=== PATIENT | female | born 1945 | race Caucasian/White ===

== ENCOUNTER 2021-12-24 13:39 | Outpatient (CLI) | payer OTHER, SELFPAY ==
[2021-12-24 21:59] LABS: Chloride* 101 mmol/L (96-114); Potassium* 4.9 mmol/L (3.6-5.1); Sodium* 134 mmol/L (135-149)
[2021-12-24 22:01] LABS: Cholesterol* 189 mg/dL (90-199)
[2021-12-24 22:02] LABS: Blood Urea Nitrogen* 26 mg/dL (7-30); Carbon Dioxide* 27 mmol/L (20-32); Estimated Glomerular Filt Rate 58 ml/min; Glucose* 99 mg/dL (60-115); Triglycerides* 77 mg/dL (40-149)
[2021-12-24 22:03] LABS: Calcium* 9.4 mg/dL (8.4-10.6); HDL Cholesterol* 61 mg/dL (>=50); LDL Cholesterol Calculated 113 mg/dL (<100)
== END 2021-12-24 13:40 | disposition home or self-care (01) ==
PROVIDERS: PCP Emergency Medicine; Visit Provider Emergency Medicine
DX: I10 Essential (primary) hypertension (principal); Z13.6 Encounter for screening for cardiovascular disorders
CPT/HCPCS: 80048; 80061

== ENCOUNTER 2022-03-09 10:30 | Outpatient (RCR) | payer OTHER, SELFPAY ==
--- NOTE | 2022-02-09 15:50 | PT.OPDN ---
[facility] PT [facility] Daily Note Start: 02/09/22 12:04 Freq: Status: Active Protocol: Document 02/09/22 12:04 CJT (Rec: 02/09/22 14:42 CJT [id number]) E-signed By Alfonzo Gomez, PT PT [facility] Daily Progress Note Visit Information Note Type Daily Note Visit Number 1 Insurance Authorized Visits tbd Physician Authorized Visits eval and treat Insurance Information Recert Due Date 04/10/22 Insurance Name [employer] Diagnosis M54.5 - low back pain Treating Diagnosis M54.5 - low back pain Referring Alexia Curtis PA-C Subjective Subjective Pt presents with complaints of low back pain. Pt was making her bed back in December 2021 and felt a twinge. The next day the pain was much worse and she wasn't able to move. Pts pain has since fluctuated nearly daily. Pain was made worse with bending forward but she is able to bend forward now. Pain has been gradually getting better. Still having some pain in R lumbar region at iliac crest/PSIS region. Pt wants to be able to walk at least a half a block. Pt feels she is not able to walk further due to LE weakness. : [place] Home Exercise Home Exercise Comments [id number] Objective Other/Pertinent Objective Lumbar ROM Extension - 7 degrees Flexion - no restrictions R/L Side Bend - 15/12 R/L Rotation - moderate restrictions B R Hip ROM Flexion - 110 IR/ER - 25/15 L Hip ROM Flexion - 120 IR/ER - 30/25 R knee ROM - WNL L knee ROM - WNL Strength R Hip Strength Flexion - 3 Abduction - 4 Adduction - 4 IR - 5 ER - 5 Extension - DNT L Hip Strength Flexion - 4 Abduction - 4 Adduction - 5 IR - 5 ER - 5 Extension - DNT R knee Extension - 5 R Knee Flexion - 4+ L knee Extension - 5 L knee Flexion - 5 R ankle DF - 4 L ankle DF - 5 Spurling's compression, SLR< slump each negative bilaterally Pelvis: level LLD Right - 89.5cm Left - 90.5cm Patient Instructed in Risks/Benefits Yes Therapeutic Exercise Therapeutic Exercise Minutes (minutes) 15 Therapeutic Exercise: To Restore Supine trunk rotations x 20 Functional Status SKTC stretch x 60 ea DKTC stretch x 60 PPT 2 x 10 reps, 5 hold Treatment Minutes Untimed Code Treatment Minutes 45 Timed Code Treatment Minutes 15 Total Treatment Time 60 Billing Units Therapeutic Exercise Units 1 Assessment/Impression Assessment/Impression Adriana is a 76 year old female who presents to OP PT clinic with complaints of LBP. Pt has chronic LBP but notes that her pain now is different . Began when she was making her bed in December. Pain has fluctuated since but remains relatively unchanged. Is able to bend forward now but occasionally still has sharp pains around her R PSIS region . Testing reveals deficits in strength and ROM of lumbar spine and B LEs. Pt shows fair ability to perform pelvic tilt indicating ability to contract deep pelvic stabilizers. Pts pain appears to be due to a myofascial strain from when she was lifting the corner of her bed when changing sheets. Skilled PT services are medically necessary to address deficits and return patient to highest level of function. Recommend physical therapy sessions 2/ week for 8 weeks. Pt agrees with this plan. Printout of HEP was given for I completion and pt gives verbal understanding of each exercise . Plan of Care Physical Therapy Goals STG - To be completed in 2-3 weeks: 1. Pt will report reduction in back pain by factor of 2 so that they may perform all ADLs with tolerable level of pain. 2. Pt will demonstrate ability to perform pelvic tilt with good coordination as indication of appropriate firing of pelvic and lumbar stabilizing muscles to provide greater support for pelvis and lumbar spine. 3. Pt will demonstrate improved lumbar extension by 10 degrees so that they may reach for cans of soup on top shelf in pantry. 4. Pt will demonstrate 5/5 MMT for all LE motions without reproduction of pain to provide greater support to pelvis and lumbar spine. 5. Pt will report ability to tolerate 30+ minutes of standing so that they may cook meals for family gatherings.. LTG - To be completed in 8-12 weeks: 1. Pt to be I with HEP so that they may I manage progression of symptoms. 2. Pt will report ability to sleep through the night without waking due to pain so that they may wake well rested with reduced mental fatigue during working hours. 3. Pt will demonstrate 5/5 MMT for both upper and lower abdominals to provide greater support to pelvis and lumbar spine. 4. Pt will demo ability to walk 1000 ft without stopping to rest so that she may walk with her for exercise/ pleasure. Daily Plan of Care Continue per POC
== END 2022-05-19 11:45 | disposition home or self-care (01) ==
PROVIDERS: PCP Emergency Medicine; Visit Provider Emergency Medicine
DX: M54.50 Low back pain, unspecified (principal); Z51.89 Encounter for other specified aftercare
CPT/HCPCS: 97110; 97140; 97161

== ENCOUNTER 2022-12-22 08:56 | Outpatient (CLI) | payer OTHER, SELFPAY | END 2022-12-22 08:57 | disposition home or self-care (01) | LOC: NFLDREF 12-23 05:53 | PROVIDERS: PCP Emergency Medicine; Referring Provider Emergency Medicine; Visit Provider Emergency Medicine | DX: Z00.00 Encounter for general adult medical examination without abnormal findings (principal); R73.01 Impaired fasting glucose; I10 Essential (primary) hypertension; Z13.6 Encounter for screening for cardiovascular disorders | CPT/HCPCS: 80048; 80061 ==

== ENCOUNTER 2022-12-24 08:58 | Outpatient (CLI) | payer OTHER, SELFPAY | END 2022-12-24 08:59 | disposition home or self-care (01) | LOC: NFLDREF 12-25 08:17 | PROVIDERS: PCP Emergency Medicine; Referring Provider Emergency Medicine; Visit Provider Emergency Medicine | DX: Z00.00 Encounter for general adult medical examination without abnormal findings (principal); N95.2 Postmenopausal atrophic vaginitis | CPT/HCPCS: 84443 ==

== ENCOUNTER 2023-04-01 10:25 | Outpatient (CLI) | payer OTHER, SELFPAY ==
[2023-04-01 10:37] LABS: Appearance Urine Cloudy (Clear); Bilirubin Urine Negative (Negative); Blood Urine 1+ (Negative); Color Urine Yellow (Yellow); Glucose Urine Negative (Negative); Ketones Urine Negative (Negative); Leukocyte Esterase Urine 2+ (Negative); Nitrite Urine Positive (Negative); Protein Urine Negative (Negative); Urobilinogen Urine 0.2 (0.2-1.0); pH Urine 5.5 (5.0-8.5)
[2023-04-01 10:44] LABS: Squamous Epithelial Cell Urine Few (None-Few); WBC Clumps Urine Many; WBC Urine 50-100 (0-5)
[2023-04-01 10:45] LABS: Bacteria Urine Many
== END 2023-04-01 10:26 | disposition home or self-care (01) ==
LOC: LKVREF 10:26
PROVIDERS: PCP Emergency Medicine; Visit Provider Emergency Medicine
DX: N39.0 Urinary tract infection, site not specified (principal)
CPT/HCPCS: 81001; 87086; 87186

== ENCOUNTER 2023-05-10 22:27 | Outpatient (REF) | payer OTHER, SELFPAY ==
[2023-05-10 23:47] LABS: Appearance Urine Clear (Clear); Bilirubin Urine Negative (Negative); Blood Urine Trace-intact (Negative); Color Urine Yellow (Yellow); Glucose Urine Trace (Negative); Ketones Urine Negative (Negative); Leukocyte Esterase Urine Trace (Negative); Nitrite Urine Negative (Negative); Protein Urine Negative (Negative); Urobilinogen Urine 0.2 (0.2-1.0); pH Urine 5.5 (5.0-8.5)
[2023-05-11 00:04] LABS: WBC Urine 0-2 (0-5)
== END 2023-05-10 22:28 | disposition home or self-care (01) ==
LOC: LAB 22:27
PROVIDERS: PCP Emergency Medicine
DX: R39.89 Other symptoms and signs involving the genitourinary system (principal)
CPT/HCPCS: 81001; 87086

== ENCOUNTER 2023-05-19 14:35 | Outpatient (CLI) | payer OTHER, SELFPAY | END 2023-05-19 14:36 | disposition home or self-care (01) | LOC: LKVREF 14:36 | PROVIDERS: PCP Emergency Medicine; Visit Provider Emergency Medicine | DX: D72.829 Elevated white blood cell count, unspecified (principal) | CPT/HCPCS: 86140 ==

== ENCOUNTER 2023-06-18 12:09 | Outpatient (CLI) | payer OTHER, SELFPAY | END 2023-06-18 12:10 | disposition home or self-care (01) | LOC: NFLDREF 06-30 13:54 | PROVIDERS: PCP Emergency Medicine; Referring Provider Emergency Medicine; Visit Provider Physician Assistant | DX: N39.0 Urinary tract infection, site not specified (principal) | CPT/HCPCS: 87086; 87186 ==

== ENCOUNTER 2023-07-21 09:27 | Outpatient (CLI) | payer OTHER, SELFPAY | END 2023-07-21 09:28 | disposition home or self-care (01) | PROVIDERS: PCP Emergency Medicine; Visit Provider Emergency Medicine | DX: R20.2 Paresthesia of skin (principal); Z13.228 Encounter for screening for other metabolic disorders; Z13.21 Encounter for screening for nutritional disorder; Z13.29 Encounter for screening for other suspected endocrine disorder | CPT/HCPCS: 80048; 82607; 84443 ==

== ENCOUNTER 2023-08-12 12:23 | Outpatient (CLI) | payer OTHER, SELFPAY ==
--- NOTE | 2023-08-12 13:00 | CT_ITS ---
Patient: FERDINAND ALMANZAR Facility:?[facility] Patient ID:?[id number] Site Patient ID:?[id number]. Site :?[id number] Study:?CT-Chest w/ 75cc [id number]/25/2024 1:03:47 PM Ordering Physician:Jake Delarosa Final Report: INDICATION: Pneumonia TECHNIQUE: Volumetric helical scanning of the thorax was performed with 75 cc of Isovue 370 nonionic contrast material IV. Coronal and sagittal reconstructions were obtained. COMPARISON: Chest CT of 05/12/2023 FINDINGS: The lungs are clear. The previously demonstrated right middle and upper lobe pneumonias have resolved. There is no significant airway abnormality. No pleural effusion is demonstrated. There is no mediastinal or hilar lymphadenopathy. A small hiatal hernia is noted. The heart size is normal. Images of the upper abdomen demonstrates stones in the gallbladder. IMPRESSION: 1. Negative chest CT. Clear lungs. 2. Small hiatal hernia. 3. Cholelithiasis. Please note that all CT scans at this facility use dose modulation, iterative reconstruction, and/or weight-based dosing when appropriate to reduce radiation dose to as low as reasonably achievable. Dictated by Gumaro Yost MD @ 08/13/2023 10:36:13 AM Signed by:?Gumaro Yost MD @08/13/2023 10:36:13 AM (Electronic Signature)
== END 2023-08-12 12:24 | disposition home or self-care (01) ==
PROVIDERS: PCP Emergency Medicine; Visit Provider Emergency Medicine
DX: J18.9 Pneumonia, unspecified organism (principal); K80.20 Calculus of gallbladder without cholecystitis without obstruction
CPT/HCPCS: 71260; Q9967

== ENCOUNTER 2024-01-14 21:55 | Outpatient (REF) | payer OTHER, SELFPAY ==
[2024-01-14 22:59] LABS: Appearance Urine Clear (Clear); Bilirubin Urine Negative (Negative); Blood Urine Negative (Negative); Color Urine Yellow (Yellow); Glucose Urine Negative (Negative); Ketones Urine Negative (Negative); Leukocyte Esterase Urine Trace (Negative); Nitrite Urine Negative (Negative); Protein Urine Negative (Negative); Urobilinogen Urine 0.2 (0.2-1.0); pH Urine 5.5 (5.0-8.5)
[2024-01-14 23:17] LABS: Bacteria Urine Few; RBC Urine 0-2 (0-2); Squamous Epithelial Cell Urine Moderate (None-Few)
== END 2024-01-14 21:56 | disposition home or self-care (01) ==
LOC: NPINS 21:55
PROVIDERS: PCP Emergency Medicine
DX: R39.89 Other symptoms and signs involving the genitourinary system (principal)
CPT/HCPCS: 81001; 81003; 87086

== ENCOUNTER 2024-02-01 15:10 | Outpatient (CLI) | payer OTHER, SELFPAY | END 2024-02-01 15:11 | disposition home or self-care (01) | LOC: NFLDREF 02-02 08:56 | PROVIDERS: PCP Emergency Medicine; Referring Provider Emergency Medicine | DX: N39.0 Urinary tract infection, site not specified (principal); R31.9 Hematuria, unspecified | CPT/HCPCS: 87086 ==

== ENCOUNTER 2024-02-08 14:22 | Outpatient (CLI) | payer OTHER, SELFPAY | END 2024-02-08 14:23 | disposition home or self-care (01) | LOC: NFLDREF 02-10 11:37 | PROVIDERS: PCP Emergency Medicine; Referring Provider Emergency Medicine; Visit Provider Emergency Medicine | DX: R31.9 Hematuria, unspecified (principal); G47.00 Insomnia, unspecified; R31.0 Gross hematuria | CPT/HCPCS: 87086 ==

== ENCOUNTER 2024-03-01 12:31 | Outpatient (CLI) | payer OTHER, SELFPAY ==
--- NOTE | 2024-03-15 08:43 | W.PM.SLEEP ---
Sleep Study Details Details Interpreting Provider: Aminta Date of Sleep Study: 03/01/24 Sleep Study Details: STUDY TYPE:? Home unattended ? BMI:? Not recorded ORDERING PROVIDER:? Aminta INDICATION:? Concern about sleep apnea ? SLEEP SUMMARY:? 505 minutes monitored RESPIRATORY SUMMARY:? AHI 14.5 per CMS guideline, 19.6 per rule 1A Low oxygen 80 14.9% of study oxygen less than 90% Snoring 100% PERIODIC LIMB MOVEMENTS OF SLEEP:? Not recorded CARDIAC:? Range 58-94, mean 70.2 IMPRESSION:? Mild obstructive sleep apnea with significant oxygen desaturations RECOMMENDATION: Treatment options include CPAP or dental appliance.
== END 2024-03-01 12:32 | disposition home or self-care (01) ==
LOC: SLEEP 12:31
PROVIDERS: PCP Emergency Medicine; Visit Provider Otolaryngology
DX: G47.33 Obstructive sleep apnea (adult) (pediatric) (principal)
CPT/HCPCS: 95806

== ENCOUNTER 2024-07-05 19:26 | Outpatient (CLI) | payer OTHER, SELFPAY | END 2024-07-05 19:27 | disposition home or self-care (01) | LOC: NFLDREF 07-07 09:43 | PROVIDERS: PCP Emergency Medicine; Referring Provider Emergency Medicine; Visit Provider Physician Assistant | DX: R30.0 Dysuria (principal); N39.0 Urinary tract infection, site not specified; R31.9 Hematuria, unspecified | CPT/HCPCS: 87086 ==

== ENCOUNTER 2024-07-27 15:56 | Outpatient (CLI) | payer OTHER, SELFPAY | END 2024-07-27 15:57 | disposition home or self-care (01) | LOC: NFLDREF 08-01 | PROVIDERS: PCP Emergency Medicine; Referring Provider Emergency Medicine; Visit Provider Emergency Medicine | DX: N39.0 Urinary tract infection, site not specified (principal); B96.20 Unspecified Escherichia coli [E. coli] as the cause of diseases classified elsewhere | CPT/HCPCS: 87086 ==

== ENCOUNTER 2025-02-08 07:51 | Outpatient (CLI) | payer OTHER, SELFPAY | END 2025-02-08 07:52 | disposition home or self-care (01) | LOC: NFLDREF 02-10 17:27 | PROVIDERS: Visit Provider Family Medicine | DX: Z01.818 Encounter for other preprocedural examination (principal) | CPT/HCPCS: 80048 ==